=== PATIENT | male | born 1955 | race Two or more races ===

== ENCOUNTER 2025-06-25 12:42 | Inpatient (IN) | payer BC, MEDICAID ==
[~2025-06-25] VITALS: Ht 180.3 cm; Wt 86.3 kg
[~2025-06-25 12:42] MED LIST: ASPI81CH43 PO; FINA5TAB4 PO; TERA1CAP52 PO; TRIA75TA11 PO
--- NOTE | 2025-06-25 12:59 | ED.PDOC ---
History of Present Illness HPI Comments 70-year-old male who is Maori-speaking presents to the ER with spouse and prior medical history of enlarged heart, hypertension, prostate she and the chief complaint of dizziness. Patient reports on waking up this morning with a for episodes of dizziness, like I am going to fall. Spouse states the patient has been generally weak recently and had shortness a breath last night. Denies any other symptoms at this time. Denies chills, fever, N/V/D, CP. No other associated symptoms, modifiers, recent injuries or sick contacts present at this time. Chief Complaint: Dizziness Time Seen by MD: 13:00 Reviewed Notes: Nurses Notes, Medications, Allergies Allergies: Coded Allergies: NO KNOWN ALLERGIES (Unverified , 07/02/13) Home Meds Reported Medications Finasteride (Finasteride) 5 Mg Tab, 5 MG PO HS, TAB 07/03/13 Aspirin (Asa) 81 Mg Ch, 81 MG PO QAM 07/03/13 Hydrochlorothiazide W/Triamter (Hctz/Triamterene) 1 Tab Tab, 12.5 MG PO QAM, TAB 07/03/13 Terazosin Hcl (Terazosin Hcl) 1 Mg Cap, 10 MG PO HS, CAP 07/02/13 Information Source: Patient, Spouse Mode of Arrival: Ambulatory Severity: Moderate Timing: Hours Duration: Since onset, Hours Prehospital treatment: None Past Medical History PAST MEDICAL HISTORY: HTN Past Medical History (Other): Purged heart, prostate issue Surgical History: Denies all surgeries Family History Family History: Reviewed,noncontributory to illness, Unknown Social History Smoker: Quit Greater Than 1 Year Alcohol: Denies ETOH Use Drugs: Denies Drug Use Lives In: Home Constitutional: reports: weakness; denies: chills, diaphoresis, fatigue, fever, malaise, sweats, others EENTM: denies: blurred vision, double vision, ear bleeding, ear discharge, ear drainage, ear pain, ear ringing, eye pain, eye redness, hearing loss, mouth pain, mouth swelling, nasal discharge, nose bleeding, nose congestion, nose pain, photophobia, tearing, throat pain, throat swelling, voice changes, others Respiratory: reports: shortness of breath; denies: cough, hemoptysis, orthopnea, SOB at rest, SOB with excertion, stridor, wheezing, others Cardiovascular: denies: chest pain, dizzy spells, diaphoresis, Dyspnea on exertion, edema, irregular heart beat, left arm pain, lightheadedness, palpitations, PND, syncope, others Gastrointestinal: denies: abdomen distended, abdominal pain, blood streaked bowels, constipated, diarrhea, dysphagia, difficulty swallowing, hematemesis, melena, nausea, poor appetite, poor fluid intake, rectal bleeding, rectal pain, vomiting, others Genitourinary: denies: burning, dysuria, flank pain, frequency, hematuria, incontinence, penile discharge, penile sore, pain, testicle pain, testicle swelling, urgency, others Neurological: reports: dizziness; denies: fainting, headache, left sided numbness, left sided weakness, numbness, paresthesia, pre-existing deficit, right sided numbness, right sided weakness, seizure, speech problems, tingling, tremors, weakness, others Musculoskeletal: denies: back pain, gout, joint pain, joint swelling, muscle pain, muscle stiffness, neck pain, others Integumetry: denies: bruises, change in color, change in hair/nails, dryness, laceration, lesions, lumps, rash, wounds, others Allergic/Immunocompromised: denies: Difficulty Healing, Frequent Infections, Hives, Itching, others Hematologic/Lymphatic: denies: anemia, blood clots, easy bleeding, easy bruising, swollen glands, others Endocrine: denies: excessive hunger, excessive sweating, excessive thirst, excessive urination, flushing, intolerance to cold, intolerance to heat, unexplained weight gain, unexplained weight loss, others Psychiatric: denies: anxiety, bipolar disorder, depression, hopeless, panic disorder, schizophrenia, sleepless, suicidal, others All Other Systems: Reviewed and Negative Physical Exam General Appearance: No Apparent Distress, Normal HEENT: Normal ENT Inspection, Pharynx Normal, TMs Normal Neck: Full Range of Motion, Non-Tender, Normal, Normal Inspection Respiratory: Chest Non-Tender, Lungs Clear, No Accessory Muscle Use, No Respiratory Distress, Normal Breath Sounds Cardiovascular: No Edema, No JVD, No Murmur, No Gallop, Normal Peripheral Pulses, Regular Rate/Rhythm Breast Exam: Deferred Gastrointestinal: No Organomegaly, Non Tender, No Pulsatile Mass, Normal Bowel Sounds, Soft Genitalia: Deferred Pelvic: Deferred Rectal: Deferred Extremities: No calf tenderness, Normal capillary refill, Normal inspection, N ormal range of motion, Non-tender, No pedal edema Musculoskeletal : Apperance: Normal Neurologic: Alert, messenger floorperson II-XII nml as Tested, No Motor Deficits, Normal Affect, Normal Mood, No Sensory Deficits Cerebellar Function: Normal Reflexes: Normal Skin: Dry, Normal Color, Warm Lymphatic: No Adenopathy Was a procedure done? Was a procedure done?: No EKG EKG : Pulse Rate (adult): 65 [place]: Normal Cardiac Rhythm: NSR Block: None Hypertrophy: None ST: Normal Differential Dx Considerations may include: ACS, CVA, viral syndrome, electrolyte abnormality, infectious etiology X-Ray, Labs, Meds, VS Vital Signs Date Time Temp Pulse Resp B/P (MAP) Pulse Ox O2 Delivery O2 Flow Rate FiO2 06/25/25 12:59 65 06/25/25 12:48 65 06/25/25 12:44 97.0 74 15 158/78 98 97.0 Lab Test 06/25/25 14:03 06/25/25 13:07 Range/Units Troponin I High Sensitivity 4 5 </=54 ng/L White Blood Count 5.8 4.4-10.8 10^3/uL Red Blood Count 4.37 L 4.5-5.90 10^6/uL Hemoglobin 12.8 L 13.5-17.5 g/dL Hematocrit 37.7 L 41.0-53.0 % Mean Corpuscular Volume 86.2 80.0-100.0 fL Mean Corpuscular Hemoglobin 29.2 28.0-32.0 pg Mean Corpuscular Hemoglobin Concent 33.8 32.0-36.0 g/dL Red Cell Distribution Width 16.4 H 11.8-14.3 % Platelet Count 248 140-450 10^3/uL Mean Platelet Volume 7.9 6.9-10.8 fL Neutrophils (%) (Auto) 60.4 37.0-80.0 % Lymphocytes (%) (Auto) 27.8 10.0-50.0 % Monocytes (%) (Auto) 6.2 0.0-12.0 % Eosinophils (%) (Auto) 3.9 0.0-7.0 % Basophils (%) (Auto) 1.7 0.0-2.0 % Neutrophils # (Auto) 3.5 1.6-8.6 10 ^3/uL Lymphocytes # (Auto) 1.6 0.4-5.4 10 ^3/uL Monocytes # (Auto) 0.4 0-1.3 10 ^3/uL Eosinophils # (Auto) 0.2 0-0.8 10 ^3/uL Basophils # (Auto) 0.1 0-0.2 10 ^3/uL Nucleated Red Blood Cells 0.1 % Sodium Level 143 136-145 mmol/L Potassium Level 3.9 3.5-5.1 mmol/L Chloride Level 106 98-107 mmol/L Carbon Dioxide Level 29 20-31 mmol/L Anion Gap 8 5-15 Blood Urea Nitrogen 13 9-23 mg/dL Creatinine 0.91 0.700-1.30 mg/dL Glomerular Filtration Rate Calc 90 >90 mL/min BUN/Creatinine Ratio 14.3 10.0-20.0 Serum Glucose 103 74-106 mg/dL Calcium Level 9.2 8.7-10.4 mg/dL B-Type Natriuretic Peptide 46.56 0-100 pg/mL Time of 1ST Reevaluation: 13:30 Reevaluation 1ST: Unchanged Patient Education/Counseling: Diagnosis, Treatment, Prognosis Family Education/Counseling: Diagnosis, Treatment, Prognosis SEPSIS Sepsis Screen Date sepsis recognized/suspect: Jun 25, 2025 Time Sepsis recognized/suspect: 1246 Recent Procedure: No On Antibiotic Therapy: No Respiratory Rate >20: No Heart Rate >90: No Temp<36 C (96.8 F) or >38.3 C: No SBP <90 or MAP <65 mmHG: No New Acute Mental Status Change: No Is the patient on CPAP, BIPAP,: No Physician Orders Urinalysis (06/25/25 12:56) Chest Portable (06/25/25 12:56) Head Without Contrast (06/25/25 12:56) Electrocardigram (06/25/25 12:56) Troponin-I Hs (06/25/25 15:56) Electrocardigram (06/25/25 13:56) Electrocardigram (06/25/25 15:56) Vital Signs Date Time Temp Pulse Resp B/P (MAP) Pulse Ox O2 Delivery O2 Flow Rate FiO2 06/25/25 12:59 65 06/25/25 12:48 65 06/25/25 12:44 97.0 74 15 158/78 98 97.0 Laboratory Tests Test 06/25/25 13:07 White Blood Count 5.8 10^3/uL (4.4-10.8) Departure 1 Departure Time of Disposition: 15:58 (Patient presented with near syncope today and should be admitted. Data: 1. I ordered and reviewed the result of at least 3 labs including a CBC, BMP, and troponin. 2. I independently interpreted the following tests: EKG which shows a sinus arrhythmia and a chest x-ray which shows benign chest and a CT head which shows benign brain.Risk:This patient has a high risk of morbidity due to further diagnostic testing or treatment and may suffer from an acute cardiac, neurologic, or infectious disorder. Rationale: Patient should be admitted to the hospital for further management.) Impression: Primary Impression: Near syncope Additional Impression: Generalized weakness Disposition: 09 ADMITTED INPATIENT Admit to: Tele Condition: Guarded Critical Care Note Critical Care Time?: No Stability Stability form required: No I personally scribed for JOEL ALLEN MD ([email or web address]) on 06/25/25 at 12:59. Electronically submitted by Isaac Wild ([email or web address]). JOEL ALLEN MD Jun 25, 2025 12:59
[2025-06-25 13:21] LABS: Hematocrit 37.7 % (41.0-53.0); Hemoglobin 12.8 g/dL (13.5-17.5); Mean Corpuscular Hemoglobin 29.2 pg (28.0-32.0); Mean Corpuscular Volume 86.2 fL (80.0-100.0); Nucleated Red Blood Cells % 0.1 %
[2025-06-25 13:25] LABS: Chloride 106 mmol/L (98-107); Potassium 3.9 mmol/L (3.5-5.1); Sodium 143 mmol/L (136-145)
[2025-06-25 13:26] LABS: Anion Gap 8 (5-15); Carbon Dioxide 29 mmol/L (20-31)
[2025-06-25 13:27] LABS: Calcium 9.2 mg/dL (8.7-10.4)
[2025-06-25 13:31] LABS: BUN/Creatinine Ratio 14.3 (10.0-20.0); Blood Urea Nitrogen 13 mg/dL (9-23); Glucose 103 mg/dL (74-106)
--- NOTE | 2025-06-25 13:41 | DVH ---
CHEST RADIOGRAPH INDICATION: near syncope TECHNIQUE: Single frontal view of the chest was obtained COMPARISON: None FINDINGS: Lines and Tubes: None Lungs: No focal consolidation. Pleura: No effusion. No pneumothorax. Cardiomediastinal contours: Unremarkable Bones: No acute osseous abnormality. IMPRESSION: 1. No acute cardiopulmonary disease.
--- NOTE | 2025-06-25 14:13 | DVH ---
CLINICAL INFORMATION: Near syncope. Headache. TECHNIQUE: Axial imaging was obtained through the brain without contrast. Coronal and sagittal reformatted images were obtained, reviewed, and stored. Images were reviewed in brain and bone windows. All CT scans at this medical facility are performed using dose modulation techniques as appropriate to a performed exam including the following: Automated exposure control was utilized; adjustment of the MA and/or KV according to patient size; and use of iterative reconstruction technique. CTDIvol = 67 mGy DLP = 1586.3 mGy-cm COMPARISON: None FINDINGS: There is no acute intracranial hemorrhage. No mass effect or midline shift. The ventricles and sulci are within normal limits in size for age. Basal cisterns are patent. The calvarium is unremarkable. Minimal mucosal thickening of the paranasal sinuses. Mastoid air cells are clear. IMPRESSION: No CT evidence of acute intracranial abnormality.
[2025-06-25] MEDS ORDERED: DEXTROSE (50%) 50ML SYRG IV PRN (16:45)
--- NOTE | 2025-06-25 16:48 | ECG ---
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
--- NOTE | 2025-06-25 17:00 | DVHHPRES ---
History of Present Illness Resident Creating Document: LOREN GRIJALVA RESIDENT History of Present Illness 70-year-old male with past medical history of hypertension, diabetes mellitus type 2, prostatomegaly, kidney cyst, right inguinal hernia, cardiomegaly presented with the complaints of presyncope. Patient mentioned that he had two episodes of presyncope in the 1st time and he was taking the garbage on 2nd time during driving. He described the presyncope as "I felt like I was about to fall". Patient did not have any head injury. He denied any active chest pain, palpitations but mentioned that he gets tired after walking with minimal activity. He Also mentioned complaints of pedal edema . He denied any complaints of seizure, chills, abdominal pain, nausea, vomiting, headache. Past medical history Hypertension Diabetes mellitus type 2 prostatomegaly, kidney cyst, right inguinal hernia, cardiomegaly Past surgical history No recent surgery Medication history Tamsulosin Amlodipine Valsartan hydrochlorothiazide Amlodipine olmesartan Atorvastatin Doxazosin Social history Patient quit years ago, smoked for15 years Denied alcohol, marijuana or any other drug intake Allergic history No known allergies Review of Systems Review of Systems As described in the HPI Allergies: Coded Allergies: NO KNOWN ALLERGIES (Unverified , 07/02/13) Medications Current Medications Medications Dose Ordered Sig/Isael Route Start Time Stop Time Status Last Admin Dose Admin Diagnostic Test (Pha) 1 strip Q6HR 06/25/25 18:00 UNV Insulin Human Regular Q6HR SC 06/25/25 18:00 UNV Dextrose 50 ml UD PRN IV 06/25/25 16:45 UNV Aspirin 81 mg DAILY PO 06/26/25 10:00 UNV Exam Vital Signs Vital Signs Date Time Temp Pulse Resp B/P (MAP) Pulse Ox O2 Delivery O2 Flow Rate FiO2 06/25/25 12:59 65 06/25/25 12:44 97.0 15 158/78 98 97.0 Exam Examination General Appearance: Alert, Oriented X3, Cooperative, No acute distress HEENT: EOMI Respiratory: Clear to auscultation, Normal air movement Cardiovascular: Regular rate, Normal S1, Normal S2 Abdominal: Normal bowel sounds Extremities: Bilateral pedal pitting edema Skin: No rashes, No breakdown Neuro: Normal speech and tone Labs/Xrays Labs Test 06/25/25 14:03 06/25/25 13:07 Range/Units Troponin I High Sensitivity 4 </=54 ng/L White Blood Count 5.8 4.4-10.8 10^3/uL Red Blood Count 4.37 L 4.5-5.90 10^6/uL Hemoglobin 12.8 L 13.5-17.5 g/dL Hematocrit 37.7 L 41.0-53.0 % Mean Corpuscular Volume 86.2 80.0-100.0 fL Mean Corpuscular Hemoglobin 29.2 28.0-32.0 pg Mean Corpuscular Hemoglobin Concent 33.8 32.0-36.0 g/dL Red Cell Distribution Width 16.4 H 11.8-14.3 % Platelet Count 248 140-450 10^3/uL Mean Platelet Volume 7.9 6.9-10.8 fL Neutrophils (%) (Auto) 60.4 37.0-80.0 % Lymphocytes (%) (Auto) 27.8 10.0-50.0 % Monocytes (%) (Auto) 6.2 0.0-12.0 % Eosinophils (%) (Auto) 3.9 0.0-7.0 % Basophils (%) (Auto) 1.7 0.0-2.0 % Neutrophils # (Auto) 3.5 1.6-8.6 10 ^3/uL Lymphocytes # (Auto) 1.6 0.4-5.4 10 ^3/uL Monocytes # (Auto) 0.4 0-1.3 10 ^3/uL Eosinophils # (Auto) 0.2 0-0.8 10 ^3/uL Basophils # (Auto) 0.1 0-0.2 10 ^3/uL Nucleated Red Blood Cells 0.1 % Sodium Level 143 136-145 mmol/L Potassium Level 3.9 3.5-5.1 mmol/L Chloride Level 106 98-107 mmol/L Carbon Dioxide Level 29 20-31 mmol/L Anion Gap 8 5-15 Blood Urea Nitrogen 13 9-23 mg/dL Creatinine 0.91 0.700-1.30 mg/dL Glomerular Filtration Rate Calc 90 >90 mL/min BUN/Creatinine Ratio 14.3 10.0-20.0 Serum Glucose 103 74-106 mg/dL Calcium Level 9.2 8.7-10.4 mg/dL B-Type Natriuretic Peptide 46.56 0-100 pg/mL SEPSIS Sepsis Screen Date sepsis recognized/suspect: Jun 25, 2025 Time Sepsis recognized/suspect: 1246 Recent Procedure: No On Antibiotic Therapy: No Respiratory Rate >20: No Heart Rate >90: No Temp<36 C (96.8 F) or >38.3 C: No SBP <90 or MAP <65 mmHG: No New Acute Mental Status Change: No Is the patient on CPAP, BIPAP,: No Physician Orders Urinalysis (06/25/25 12:56) Chest Portable (06/25/25 12:56) Head Without Contrast (06/25/25 12:56) Electrocardigram (06/25/25 12:56) Electrocardigram (06/25/25 13:56) Electrocardigram (06/25/25 15:56) Admit (06/25/25 16:31) Code Status (06/25/25 16:31) Complete Blood Count (06/26/25 04:00) Comprehensive Metabolic Panel (06/26/25 04:00) Echo 2d Mode Cardiac Dop (06/25/25 16:31) Oxygen By Nasal Cannula (06/25/25 16:31) Stat Ekg For Chest Pain (06/25/25 16:31) Notify Md Of Changes From Base (06/25/25 16:31) Boiler Repair Supervisor For 24 Hours (06/25/25 16:31) Emergency Dysrhythmia Protocol (06/25/25 16:31) Rhythm Strips Once Every Shift (06/25/25 16:31) Head Without Contrast (06/25/25 16:31) Troponin-I Hs (06/25/25 16:31) B-Type Natriuretic Peptide (06/25/25 16:31) Thyroid Stimulating Hormone (06/25/25 16:31) Troponin-I Hs (06/25/25 17:31) Troponin-I Hs (06/25/25 19:31) Chest Xray 1 View (06/25/25 16:31) Urinalysis (06/25/25 16:31) Drug Screen (06/25/25 16:31) Hepatic Panel (06/25/25 16:31) Cardiac Diet-2gna,Lofat,Lochol (06/25/25 Dinner) Glucose Blood (Accu-Chek Comfort Curve T (06/25/25 18:00) Insulin R (Human) (Insulin R) (06/25/25 18:00) Dextrose 50% Syringe (06/25/25 16:45) Aspirin Chewable Tablet (06/25/25 16:45) Aspirin Chewable Tablet (06/26/25 10:00) Vital Signs Date Time Temp Pulse Resp B/P (MAP) Pulse Ox O2 Delivery O2 Flow Rate FiO2 06/25/25 12:59 65 06/25/25 12:48 65 06/25/25 12:44 97.0 74 15 158/78 98 97.0 Laboratory Tests Test 06/25/25 13:07 White Blood Count 5.8 10^3/uL (4.4-10.8) Assessment/Plan Assessment/Plan Assessment/plan # presyncope polypharmacy/cardiac cause Head CT Echo EKG Tropes, BNP Orthostatic vitals TSH, B12, folate # Hypertension -resume home meds # bilateral pedal pitting edema ? Amlodipine use/congestive heart failure/other causes -echo ordered BNP # BPH Hold doxazosin as of now because of presyncope # diabetes mellitus two Sliding scale insulin Hemoglobin A1c DVT prophylaxis Patient is ambulatory Code status discussed with the patient for greater than 21 minutes, full code Case discussion with Dr. Duarte Plan discussed with: Patient My Orders Orders - LOREN GRIJALVA RESIDENT Procedure Category Date Status Time Admit ADMIT 06/25/25 Transmitted 16:31 Code Status CODE 06/25/25 Transmitted 16:31 Complete Blood Count LAB 06/26/25 Verified 04:00 Comprehensive LAB 06/26/25 Verified Metabolic Panel 04:00 Echo 2d Mode Cardiac US 06/25/25 Logged DOP 16:31 Oxygen By Nasal RT 06/25/25 Transmitted Cannula 16:31 Stat Ekg For Chest KENDALL 06/25/25 In Process Pain 16:31 Notify Of Changes KENDALL 06/25/25 In Process From Base 16:31 Boiler Repair Supervisor For KENDALL 06/25/25 In Process 24 Hours 16:31 Emergency Dysrhythmia KENDALL 06/25/25 In Process Protocol 16:31 Rhythm Strips Once KENDALL 06/25/25 In Process Every Shift 16:[address] 06/25/25 Logged 16:31 Troponin-I Hs LAB 06/25/25 Logged 16:31 B-Type Natriuretic LAB 06/25/25 Logged Peptide 16:31 Thyroid Stimulating LAB 06/25/25 Logged Hormone 16:31 Troponin-I Hs LAB 06/25/25 Logged 17:31 Troponin-I Hs LAB 06/25/25 Logged 19:31 Chest Xray 1 View XY 06/25/25 Logged 16:31 Urinalysis LAB 06/25/25 Logged 16:31 Drug Screen LAB 06/25/25 Logged 16:31 Hepatic Panel LAB 06/25/25 Logged 16:31 Cardiac DIET 06/25/25 Transmitted Diet-2gna,Lofat,Lochol Dinner Glucose Blood PHA 06/25/25 Logged (Accu-Chek Comfort 18:00 Insulin R (Human) PHA 06/25/25 Logged (Insulin R) 18:00 Dextrose 50% Syringe PHA 06/25/25 Logged 16:45 Aspirin Chewable PHA 06/25/25 In Process Tablet 16:45 Aspirin Chewable PHA 06/26/25 Logged Tablet 10:00 Visit Coding STANDARD RES Billing Provider: DACIA DUARTE MD Date of Service if different f: Jun 25, 2025 Common Visit Codes: 73081-IYKVDTS INP/OBS CARE (HIGH) Secondary Visit Codes: [id number] CARE PLAN 30 MINUTES LOREN GRIJALVA RESIDENT Jun 25, 2025 17:00
[2025-06-25 17:04] LABS: Alanine Aminotransferase 22 U/L (7-40); Albumin 4.3 g/dL (3.2-4.8); Alkaline Phosphatase 106 U/L (46-116); Bilirubin, Total 0.4 mg/dL (0.2-1.0); Total Protein 7.3 g/dL (5.7-8.2)
[2025-06-25 17:05] LABS: Bilirubin, Direct < 0.1 mg/dL (<0.3)
[2025-06-25] MEDS: InsuLIN REG 1unit/0.01ml Soln (100units/ml) SC SCH (18:37)
[2025-06-25] MEDS: ACCU-CHEK COMFORT CURVE STRIP VI SCH (18:44)
[2025-06-26] VITALS (9 sets, daily range): BP systolic 151–174; BP diastolic 73–90; PULSE 52–70; RESP 16–19; TEMP 97.7–98; O2SAT 97–99
[2025-06-26 06:44] LABS: Chloride 106 mmol/L (98-107); Potassium 3.6 mmol/L (3.5-5.1); Sodium 143 mmol/L (136-145)
[2025-06-26 06:45] LABS: Anion Gap 7 (5-15); Carbon Dioxide 30 mmol/L (20-31)
[2025-06-26 06:46] LABS: Calcium 9.1 mg/dL (8.7-10.4)
[2025-06-26 06:50] LABS: Alkaline Phosphatase 92 U/L (46-116); Glucose 102 mg/dL (74-106); Hematocrit 38.3 % (41.0-53.0); Hemoglobin 12.9 g/dL (13.5-17.5); Mean Corpuscular Hemoglobin 28.5 pg (28.0-32.0); Mean Corpuscular Volume 84.8 fL (80.0-100.0); Nucleated Red Blood Cells % 0.1 %
[2025-06-26 06:51] LABS: BUN/Creatinine Ratio 17.9 (10.0-20.0); Blood Urea Nitrogen 12 mg/dL (9-23); Total Protein 7.0 g/dL (5.7-8.2)
[2025-06-26 06:52] LABS: Albumin 4.1 g/dL (3.2-4.8)
[2025-06-26 06:53] LABS: Bilirubin, Total 0.5 mg/dL (0.2-1.0)
[2025-06-26] MEDS ORDERED: TRIAMTER PO SCH (07:00)
[2025-06-26] MEDS ORDERED: HYDROCHLOROTHIAZIDE PO SCH (07:00)
[2025-06-26 07:49] LABS: Alanine Aminotransferase 21 U/L (7-40)
[2025-06-26 08:03] LABS: Urine Protein, UAD Negative (Negative)
[2025-06-26 08:10] LABS: Amphetamine Screen, Urine Neg (NEGATIVE); Barbiturate Scree,Urine Neg (NEGATIVE); Benzodiazephine Screen, Urine Neg (NEGATIVE); Cannabinoid Screen, Urine Neg (NEGATIVE); Cocaine Screen, Urine Neg (NEGATIVE); Opiate Scree,Urine Neg (NEGATIVE); Phencyclidine Screen, Urine Neg (NEGATIVE)
[2025-06-26] MEDS ORDERED: ATOR40TA52 PO (08:31)
[2025-06-26] MEDS ORDERED: AML5T PO (08:31)
[2025-06-26] MEDS ORDERED: VALS160T53 PO (08:31)
[2025-06-26] MEDS ORDERED: TAMS0.4C39 PO (08:31)
[2025-06-26] MEDS ORDERED: FERR140T5 PO (08:31)
[2025-06-26] MEDS ORDERED: DOXA4TAB83 PO (08:31)
[2025-06-26] MEDS: FINASTERIDE 5 MG TAB PO SCH (10:40)
[2025-06-26] MEDS: TRIAMTERENE/HCTZ 37.5/25 MG CAP/TAB PO SCH (10:41)
[2025-06-26] MEDS: VALSARTAN 80 MG TAB PO SCH (10:41)
--- NOTE | 2025-06-26 11:57 | DVHPNRES ---
Progress Note Date Seen: Jun 26, 2025 Resident Creating Document: PATRICK JACOBS RESIDENT Medical Necessity Reason Pt with a Central, PICC or Fol: No Subjective Review of Systems Juan Whitman is a 70-year-old past medical history of hypertension, dsu-qloiwun-vnmunnuen diabetes mellitus, prostatomegaly who presented to the ED with a chief complaint of an episode of dizziness yesterday. He mentioned he was taking out the garbage yesterday by bending down, and felt dizzy when he stood back up. He did not lose consciousness or fall. He mentions having a similar episode of dizziness 3 times in the last 1 year. He also complains of leg swelling since the last few weeks. The patient mentions he checked his blood glucose levels after the episode, which was 85. He mentions that his PCP told him in March that he has an enlarged heart. Patient has been taking his regular medications since April after he quit his job and moved to this area. Past medical history: hypertension, nnb-sewcvow-rvygnzesk diabetes mellitus, prostatomegaly Past surgical history: Denies Home medications: Tamsulosin, amlodipine, valsartan hydrochlorothiazide, atorvastatin, doxazosin Social & Personal history: Quit smoking 25 years back, smoke 20 cigarettes per week for 10 years, quit alcohol 25 years back, denies any drug use Allergies: No known allergies Patient seen and examined at bedside. Patient is alert and oriented to time, place person and responding to all questions. Eyes: No Pain, No Vision change, No Conjunctivae inflammation, No Eyelid inflammation, No Redness ENT: No Ear pain, No Ear discharge, No Nose pain, No Nose discharge, No Nose congestion, No Mouth pain, No Mouth swelling, No Throat pain, No Throat swelling Cardiovascular: No Chest Pain, No Palpitations, No Orthopnea, No Paroxysmal No Dyspnea, No Edema, No Lt Headedness Respiratory: No Cough, No Dry, No Shortness of breath, No SOB with exertion, No Wheezing, No Hemoptysis, No Pleuritic Pain, No Sputum Gastrointestinal: No Nausea, No Vomiting, No Abdominal Pain, No Diarrhea, No Constipation, No Melena, No Hematochezia Genitourinary: No Dysuria, No Frequency, No Incontinence, No Hematuria, No Retention Objective vital signs Vital Sign Date Time Temp Pulse Resp B/P (MAP) Pulse Ox O2 Delivery O2 Flow Rate FiO2 06/26/25 10:41 174/83 06/26/25 09:21 67 18 99 06/26/25 08:00 Room Air* 0 21 06/26/25 03:54 97.8 97.8 Total Intake and Output 06/25/25 06/25/25 06/26/25 15:00 23:00 07:00 Intake Total 50 ml Balance 50 ml medications Current Medications Medications Dose Ordered Sig/Isael Route Start Time Stop Time Status Last Admin Dose Admin Aspirin 81 mg DAILY PO 06/26/25 10:00 06/26/25 09:36 81 MG Triamterene/HCTZ 1 cap DAILY PO 06/26/25 10:00 06/26/25 10:41 1 CAP Tamsulosin HCl 0.4 mg QPM PO 06/26/25 18:00 Finasteride 5 mg DAILY PO 06/26/25 10:00 06/26/25 10:40 5 MG Valsartan 160 mg DAILY PO 06/26/25 10:00 06/26/25 10:41 160 MG Examination General Appearance: Cooperative. Well developed. Well nourished. NAD Head Exam: Normal inspection Neck Exam: Normal inspection. Non-tender. Normal alignment Pulmonary/Respiratory: Chest non-tender. Clear bilateral breath sounds, no crackles, no wheezing. Cardiovascular/Chest: Regular rate and rhythm. No murmurs. JVD present Peripheral Pulses: 2+ Radial (R). 2+ Radial (L). 2+ Pedal (R). 2+ Pedal (L) Abdominal Exam: Normal bowel sounds. Soft. normal abdomen, no visible veins, Nontender. No hepatospenomegaly. No masses Lower extremities: 2+ pitting edema in bilateral lower extremities Neuro/Mental Status: A&O x4. Coherent. Thoughts/Psych: Normal thought pattern. Appropriate mood and affect. Good judgement and insight Skin Exam: Normal inspection. Normal color. Warm. Dry laboratory and microbiology Laboratory Tests 06/26/25 06:07 Test 06/26/25 06:07 Range/Units Serum Glucose 102 74-106 mg/dL Labs and/or images reviewed: Labs reviewed by me, Image(s) reviewed by me Problem List/Assessment/Plan Problem List/Assessment/Plan # Possible congestive heart failure, systolic/diastolic # Presyncope, polypharmacy/cardiac cause -Head CT -acute intracranial abnormality -chest x-ray-no acute changes -EKG shows LVH -Echo ordered -Tropes negative x2, BNP 46 -Orthostatic vitals ordered -furosemide 40mg daily iv -on telemetry # Hypertensive urgency # Hypertensive heart disease with possible systolic/diastolic heart failure -dyazide 1 cap daily po and valsartan 160mg daily po # BPH -tamsulosin 0.4 mg HS, finasteride mg daily p.o. # Chronic diabetes mellitus two, controlled -Sliding scale insulin -Hemoglobin A1c Code status discussed with the patient for greater than 21 minutes, full code Plan dscussed with Dr. Whitney Plan discussed with: Patient Visit Coding STANDARD RES Billing Provider: DACIA WHITNEY MD Date of Service if different f: Jun 26, 2025 Common Visit Codes: [id number] INP/OBS CARE(HIGH) PATRICK JACOBS RESIDENT Jun 26, 2025 11:57
[2025-06-26] MEDS: SPIRONOLACTONE 25 MG TAB PO ONE (16:20)
[2025-06-26] MEDS: FUROSEMIDE 40 MG/4 ML VIAL IV SCH (17:25)
[2025-06-26] MEDS: TAMSULOSIN HYDROCHLORIDE 0.4 MG CAP PO SCH (17:46)
[2025-06-26] MEDS ORDERED: FUROSEMIDE 40 MG/4 ML VIAL IV ONE (18:00)
[2025-06-26] MEDS: ATORVASTATIN 20 MG TAB PO SCH (22:16)
[2025-06-27 01:00] VITALS: BP 182/101; PULSE 79; RESP 18; TEMP 97.9; O2SAT 95
[2025-06-27] MEDS: hydrALAZINE HCL 20 MG/ML VL IV ONE (01:02)
[2025-06-27 05:00] VITALS: BP 171/88; PULSE 60; RESP 18; TEMP 97.7; O2SAT 97
[2025-06-27 08:00] VITALS: PULSE 55
[2025-06-27] MEDS: SPIRONOLACTONE 25 MG TAB PO SCH (08:39)
[2025-06-27 09:00] VITALS: BP 171/85; PULSE 60; RESP 20; TEMP 98.7; O2SAT 95
[2025-06-27] MEDS: EMPAGLIFLOZIN 10 MG TAB PO SCH (09:59)
[2025-06-27 10:36] LABS: Chloride 102 mmol/L (98-107); Sodium 143 mmol/L (136-145)
[2025-06-27 10:37] LABS: Calcium 9.5 mg/dL (8.7-10.4)
[2025-06-27 10:39] LABS: Anion Gap 9 (5-15); Carbon Dioxide 32 mmol/L (20-31); Potassium 3.5 mmol/L (3.5-5.1)
[2025-06-27 10:42] LABS: BUN/Creatinine Ratio 11.4 (10.0-20.0); Blood Urea Nitrogen 9 mg/dL (9-23); Glucose 100 mg/dL (74-106)
[2025-06-27 10:43] LABS: Magnesium 2.2 mg/dL (1.6-2.6)
[2025-06-27 13:00] VITALS: BP 162/94; PULSE 61; RESP 20; TEMP 98.7; O2SAT 95
--- NOTE | 2025-06-27 13:52 | DVHPNRES ---
Progress Note Date Seen: Jun 27, 2025 Resident Creating Document: ADE BOURGEOISMARY RESIDENT Medical Necessity Reason Pt with a Central, PICC or Fol: No Subjective Review of Systems Patient seen and examined with the bedside Reports shortness of breath has improved significantly Denies any chest pain, cough, phlegm, dizziness, headache Objective vital signs Vital Sign Date Time Temp Pulse Resp B/P (MAP) Pulse Ox O2 Delivery O2 Flow Rate FiO2 06/27/25 09:00 98.7 60 20 171/85 (113) 95 98.7 06/27/25 08:00 Room Air* 0 21 Total Intake and Output 06/26/25 06/26/25 06/27/25 15:00 23:00 07:00 Intake Total 400 ml Output Total 400 ml Balance 0 ml medications Current Medications Medications Dose Ordered Sig/Isael Route Start Time Stop Time Status Last Admin Dose Admin Aspirin 81 mg DAILY PO 06/26/25 10:00 06/27/25 08:39 81 MG Tamsulosin HCl 0.4 mg QPM PO 06/26/25 18:00 06/26/25 17:46 0.4 MG Finasteride 5 mg DAILY PO 06/26/25 10:00 06/27/25 08:39 5 MG Valsartan 160 mg DAILY PO 06/26/25 10:00 06/27/25 08:40 160 MG Furosemide 40 mg BIDD IV 06/26/25 18:00 06/27/25 05:37 40 MG Spironolactone 25 mg DAILY PO 06/27/25 10:00 06/27/25 08:39 25 MG Atorvastatin Calcium 20 mg HS PO 06/26/25 22:00 06/26/25 22:16 20 MG Empaglifozin 10 mg DAILY PO 06/27/25 10:00 06/27/25 09:59 10 MG Examination Skin - Patients skin is warm and dry. HEENT - normocephalic, atraumatic, moist mucous membranes, no conjunctival pallor, no scleral icterus Neck - full ROM, no LAD, jugular venous pulsation seen elevated Pulmonary - B/L clear breath sounds with a improved crackles since yesterday cardiovascular - regular S1,S2 heard, no added sounds, no murmurs,. peripheral pulses normal radial 2+, pedal 2+. capillary refill normal <2 secs. GI - soft, nontender abdomen. no hepatospleenomegaly. Bowel sounds normoactive Neurological - Patient is A/O X 4 . Bilateral upper extremity strength 5/5, bilateral lower extremity strength 5/5, no facial droop, normal speech, no tremor, no sensory deficiets. laboratory and microbiology Laboratory Tests 06/27/25 09:59 06/26/25 06:07 Test 06/27/25 09:59 Range/Units Serum Glucose 100 74-106 mg/dL Problem List/Assessment/Plan Problem List/Assessment/Plan Possible congestive heart failure, systolic/diastolic Hypertensive heart disease with likely heart failure Possible pulmonary hypertension Presyncope likely due to CHF H/o BPH Type 2 diabetes mellitus - Head CT showed no acute intracranial abnormality - chest x-ray showed pulmonary venous congestion - echocardiogram pending - diuresis with Lasix 40 mg b.i.d. - on valsartan 160 mg, spironolactone 25 mg, Jardiance 10 mg - tamsulosin 0.4 mg HS, finasteride mg daily p.o. Code status discussed with the patient for greater than 19 minutes. full code Time spent: 33 minutes Plan discussed with Dr. Duarte Plan discussed with: Patient, Other (RN Shira) My Orders My Orders Orders - MAYCO BOURGEOIS Procedure Category Date Status Time Furosemide Injection PHA 06/26/25 In Process (Lasix Injection) 18:00 Spironolactone PHA 06/27/25 In Process (Aldactone) 10:00 Atorvastatin (Lipitor) PHA 06/26/25 In Process 22:00 Empagliflozin PHA 06/27/25 In Process (Jardiance) 10:00 Strict I & O KENDALL 06/27/25 In Process 10:48 Visit Coding STANDARD RES Billing Provider: DACIA DUARTE MD Date of Service if different f: Jun 27, 2025 Common Visit Codes: [id number] INP/OBS CARE(HIGH) Secondary Visit Codes: 67078-[id number] CARE PLAN 30 MINUTES MAYCO BOURGEOIS RESIDENT Jun 27, 2025 13:52
[2025-06-27] MEDS ORDERED: VALS1TAB57 PO (15:14)
[2025-06-27] MEDS ORDERED: SPIR25TA PO (15:14)
[2025-06-27] MEDS ORDERED: FURO40TA4 PO (15:14)
[2025-06-27] MEDS ORDERED: ATOR20TA50 PO (15:14)
[2025-06-27] MEDS ORDERED: EMPA1TAB PO (15:14)
[2025-06-27] MEDS ORDERED: TAMS0.4C39 PO (15:14)
[2025-06-27] MEDS ORDERED: CARV6.2551 PO (15:14)
[2025-06-27] MEDS ORDERED: FINA5TAB4 PO (15:14)
[2025-06-27 21:00] VITALS: BP 173/80; PULSE 62; RESP 17; TEMP 98.1; O2SAT 98
--- NOTE | 2025-06-27 21:09 | DVHSR ---
APPROVED REPORT EXAM: Two-dimensional and M-mode echocardiogram with Doppler and color Doppler. Blood Pressure: 171/88 mmHg INDICATION Presyncope RISK FACTORS Height: 70, Weight: 190 DIMENSIONS LVDd 5.9 (3.8-5.7cm) LA (2D) 4.9 (1.9-4.0cm) Aortic Root 3.9 (2.0-3.7cm) LVDs 3.8 (2.5-4.0cm) LA (MM) (1.9-4.0cm) Aortic Cusp Exc 2.1 (1.5-2.0cm) EF (%) 65.0 (55-70%) Rt. Atrium 5.1 (1.9-4.0cm) Asc. Aorta cm Mitral Valve Mitral Mitral Stenosis E wave 0.54m/s MV Mean GR. mmHg A wave 0.96m/s MV Peak GR. 74mmHg E/A ratio 0.6 2D MVA cm2 DECEL Time 264ms PRESS 1/2 Time 75ms IVRT ms Dop MVA 2.93cm2 Aortic Valve Aortic Valve Aortic Stenosis V1 1.01m/s AO Mean GR. 5mmHg V2 1.66m/s AO Peak GR. 11mmHg LVOT Diameter 2.6 (1.8-2.4cm) Doppler NAVIN 3.23cm2 Pulmonic Valve V2 1.64m/s Tricuspid Valve TR Velocity 2.37m/s RVSP 22mmHg Conclusion MODERATELY DILATED RV AND RA LV EF IS 65% AND IS NORMAL NORMAL VALVES NO EFFUSION
[2025-06-27] MEDS: CARVEDILOL 3.125 MG TAB PO SCH (21:10)
[2025-06-28] VITALS (7 sets, daily range): BP systolic 149–194; BP diastolic 78–95; PULSE 57–80; RESP 15–19; TEMP 97.5–98.7; O2SAT 94–98
[2025-06-28 06:11] LABS: Chloride 104 mmol/L (98-107); Potassium 3.8 mmol/L (3.5-5.1); Sodium 142 mmol/L (136-145)
[2025-06-28 06:12] LABS: Anion Gap 7 (5-15)
[2025-06-28 06:13] LABS: Calcium 9.1 mg/dL (8.7-10.4)
[2025-06-28 06:18] LABS: BUN/Creatinine Ratio 21.7 (10.0-20.0); Blood Urea Nitrogen 18 mg/dL (9-23); Carbon Dioxide 31 mmol/L (20-31); Glucose 103 mg/dL (74-106); Magnesium 2.4 mg/dL (1.6-2.6)
[2025-06-28] MEDS: FUROSEMIDE 40 MG/4 ML VIAL IV SCH (08:52)
[2025-06-28] MEDS: hydrALAZINE HCL 20 MG/ML VL IV ONE (12:44)
[2025-06-28] MEDS: CARVEDILOL 3.125 MG TAB PO ONE (12:45)
--- NOTE | 2025-06-28 14:30 | DVHPNRES ---
Progress Note Date Seen: Jun 28, 2025 Resident Creating Document: ISIAH SCHMIDT RESIDENT Medical Necessity Reason Pt with a Central, PICC or Fol: No Subjective Review of Systems Juan Whitman is a 70-year-old past medical history of hypertension, [id number] diabetes mellitus, prostatomegaly who presented to the ED with a chief complaint of an episode of dizziness yesterday. He mentioned he was taking out the garbage yesterday by bending down, and felt dizzy when he stood back up. He did not lose consciousness or fall. He mentions having a similar episode of dizziness 3 times in the last 1 year. He also complains of leg swelling since the last few weeks. The patient mentions he checked his blood glucose levels after the episode, which was 85. He mentions that his PCP told him in March that he has an enlarged heart. Patient has been taking his regular medications since April after he quit his job and moved to this area. Past medical history: hypertension, uro-ikfcrbj-qiqkomhou diabetes mellitus, prostatomegaly Past surgical history: Denies Home medications: Tamsulosin, amlodipine, valsartan hydrochlorothiazide, atorvastatin, doxazosin Social & Personal history: Quit smoking 25 years back, smoke 20 cigarettes per week for 10 years, quit alcohol 25 years back, denies any drug use Allergies: No known allergies Patient seen and examined at bedside. Patient is alert and oriented to time, place person and responding to all questions. 06/28/2025: Patient seen at bedside. Patient today has no new acute complaints. Blood pressure was elevated. Added nifedipine 20 mg p.o. daily. Objective vital signs Vital Sign Date Time Temp Pulse Resp B/P (MAP) Pulse Ox O2 Delivery O2 Flow Rate FiO2 06/28/25 12:45 76 194/95 06/28/25 09:00 97.9 19 98 97.9 06/27/25 20:00 Room Air* 0 21 Total Intake and Output 06/27/25 06/27/25 06/28/25 15:00 23:00 07:00 Intake Total 1000 ml 360 ml Output Total 1200 ml 830 ml Balance -200 ml -470 ml medications Current Medications Medications Dose Ordered Sig/Isael Route Start Time Stop Time Status Last Admin Dose Admin Aspirin 81 mg DAILY PO 06/26/25 10:00 06/28/25 08:56 81 MG Tamsulosin HCl 0.4 mg QPM PO 06/26/25 18:00 06/27/25 17:08 0.4 MG Finasteride 5 mg DAILY PO 06/26/25 10:00 06/28/25 08:55 5 MG Valsartan 160 mg DAILY PO 06/26/25 10:00 06/28/25 09:04 160 MG Spironolactone 25 mg DAILY PO 06/27/25 10:00 06/28/25 08:57 25 MG Atorvastatin Calcium 20 mg HS PO 06/26/25 22:00 06/27/25 21:10 20 MG Empaglifozin 10 mg DAILY PO 06/27/25 10:00 06/28/25 08:55 10 MG Furosemide 40 mg DAILY IV 06/28/25 10:00 06/28/25 08:52 40 MG Carvedilol 6.25 mg Q12HR PO 06/27/25 22:00 06/28/25 08:54 6.25 MG Nifedipine 60 mg DAILY PO 06/29/25 10:00 Examination General Appearance: Cooperative. Well developed. Well nourished. NAD Head Exam: Normal inspection Neck Exam: Normal inspection. Non-tender. Normal alignment Pulmonary/Respiratory: Chest non-tender. Clear bilateral breath sounds, no crackles, no wheezing. Cardiovascular/Chest: Regular rate and rhythm. No murmurs. JVD present Peripheral Pulses: 2+ Radial (R). 2+ Radial (L). 2+ Pedal (R). 2+ Pedal (L) Abdominal Exam: Normal bowel sounds. Soft. normal abdomen, no visible veins, Nontender. No hepatospenomegaly. No masses Lower extremities: 2+ pitting edema in bilateral lower extremities Neuro/Mental Status: A&O x4. Coherent. Thoughts/Psych: Normal thought pattern. Appropriate mood and affect. Good judgement and insight Skin Exam: Normal inspection. Normal color. Warm. Dry laboratory and microbiology Laboratory Tests 06/28/25 05:22 06/26/25 06:07 Test 06/28/25 05:22 Range/Units Serum Glucose 103 74-106 mg/dL Problem List/Assessment/Plan Problem List/Assessment/Plan Possible congestive heart failure, systolic/diastolic Hypertensive heart disease with likely heart failure Possible pulmonary hypertension Presyncope likely due to CHF H/o BPH Type 2 diabetes mellitus - Head CT showed no acute intracranial abnormality - chest x-ray showed pulmonary venous congestion - echocardiogram pending - diuresis with Lasix 40 mg b.i.d. - on valsartan 160 mg, spironolactone 25 mg, Jardiance 10 mg - tamsulosin 0.4 mg HS, finasteride mg daily p.o. Code status discussed with the patient for greater than 19 minutes. full code Time spent: 33 minutes Plan discussed with Dr. Smith Plan discussed with: Patient My Orders My Orders Orders - ISIAH SCHMIDT RESIDENT Procedure Category Date Status Time Nifedipine Er PHA 06/29/25 In Process (Procardia Xl 10:00 Visit Coding STANDARD RES Billing Provider: FRITZ SMITH MD Date of Service if different f: Jun 28, 2025 Common Visit Codes: [id number] INP/OBS CARE(HIGH) ISIAH SCHMIDT Jun 28, 2025 14:30 FRITZ SMITH MD Jun 28, 2025 23:33
[2025-06-29] VITALS (7 sets, daily range): BP systolic 136–164; BP diastolic 73–80; PULSE 60–77; RESP 16–18; TEMP 97.4–98.6; O2SAT 96–97
[2025-06-29 05:43] LABS: Chloride 104 mmol/L (98-107); Sodium 140 mmol/L (136-145)
[2025-06-29 05:44] LABS: Anion Gap 7 (5-15); Calcium 8.9 mg/dL (8.7-10.4); Carbon Dioxide 29 mmol/L (20-31)
[2025-06-29 05:49] LABS: BUN/Creatinine Ratio 25.4 (10.0-20.0); Blood Urea Nitrogen 18 mg/dL (9-23)
[2025-06-29 05:54] LABS: Potassium 3.4 mmol/L (3.5-5.1)
[2025-06-29 06:07] LABS: Glucose 93 mg/dL (74-106)
[2025-06-29] MEDS: POTASSIUM CHL 20 Meq TABLET PO ONE (08:30)
[2025-06-29] MEDS ORDERED: NIFE1TAB30 PO (11:57)
--- NOTE | 2025-06-29 15:54 | DVHDSRES ---
Discharge Summary Date of Admission Resident Creating Document: MAYCO BOURGEOIS RESIDENT Jun 25, 2025 at 16:31 Date of Discharge: Jun 29, 2025 Admitting Diagnosis # presyncope polypharmacy/cardiac cause # Hypertension # bilateral pedal pitting edema ? Amlodipine use/congestive heart failure/other causes # BPH # diabetes mellitus two Wounds: none Labs/Diagnostic Data: Laboratory Results Test 06/29/25 05:07 06/28/25 05:22 06/26/25 07:25 06/26/25 06:07 Sodium Level 140 mmol/L (136-145) Potassium Level 3.4 mmol/L (3.5-5.1) Chloride Level 104 mmol/L (98-107) Carbon Dioxide Level 29 mmol/L (20-31) Anion Gap 7 (5-15) Blood Urea Nitrogen 18 mg/dL (9-23) Creatinine 0.71 mg/dL (0.700-1.30) Glomerular Filtration Rate Calc 98 mL/min (>90) BUN/Creatinine Ratio 25.4 (10.0-20.0) Serum Glucose 93 mg/dL (74-106) Calcium Level 8.9 mg/dL (8.7-10.4) Magnesium Level 2.4 mg/dL (1.6-2.6) Urine Color Light-yellow (Yellow) Urine Clarity Clear (Clear) Urine pH 7.0 (5.0-9.0) Urine Specific [place] 1.007 (1.001-1.035) Urine Protein Negative (Negative) Urine Ketones Negative (Negative) Urine Blood Negative /uL (Negative) Urine Nitrite Negative (Negative) Urine Bilirubin Negative (Negative) Urine Urobilinogen Normal mg/dL (Negative) Urine Leukocyte Esterase Negative /uL (Negative) Urine RBC 1 /hpf (0 - 3) Urine Microscopic WBC 1 /HPF (0-3) Urine Squamous Epithelial Cells Few /hpf (<5) Urine Bacteria None seen /hpf (None Seen) Urine Glucose Normal mg/dL (Normal) Urine Opiates Screen Neg (NEGATIVE) Urine Fentanyl Screen Neg (NEGATIVE) Urine Barbiturates Screen Neg (NEGATIVE) Urine Phencyclidine Screen Neg (NEGATIVE) Urine Amphetamines Screen Neg (NEGATIVE) Urine Benzodiazepines Screen Neg (NEGATIVE) Urine Cocaine Screen Neg (NEGATIVE) Urine Cannabinoids Screen Neg (NEGATIVE) White Blood Count 4.8 10^3/uL (4.4-10.8) Red Blood Count 4.52 10^6/uL (4.5-5.90) Hemoglobin 12.9 g/dL (13.5-17.5) Hematocrit 38.3 % (41.0-53.0) Mean Corpuscular Volume 84.8 fL (80.0-100.0) Mean Corpuscular Hemoglobin 28.5 pg (28.0-32.0) Mean Corpuscular Hemoglobin Concent 33.6 g/dL (32.0-36.0) Red Cell Distribution Width 16.1 % (11.8-14.3) Platelet Count 244 10^3/uL (140-450) Mean Platelet Volume 8.1 fL (6.9-10.8) Neutrophils (%) (Auto) 54.2 % (37.0-80.0) Lymphocytes (%) (Auto) 30.8 % (10.0-50.0) Monocytes (%) (Auto) 7.5 % (0.0-12.0) Eosinophils (%) (Auto) 6.0 % (0.0-7.0) Basophils (%) (Auto) 1.5 % (0.0-2.0) Neutrophils # (Auto) 2.6 10 ^3/uL (1.6-8.6) Lymphocytes # (Auto) 1.5 10 ^3/uL (0.4-5.4) Monocytes # (Auto) 0.4 10 ^3/uL (0-1.3) Eosinophils # (Auto) 0.3 10 ^3/uL (0-0.8) Basophils # (Auto) 0.1 10 ^3/uL (0-0.2) Nucleated Red Blood Cells 0.1 % Hemoglobin A1c 5.9 % A1C (<5.7) Total Bilirubin 0.5 mg/dL (0.2-1.0) Aspartate Amino Transferase (AST) 18 U/L (13-40) Alanine Aminotransferase (ALT) 21 U/L (7-40) Alkaline Phosphatase 92 U/L (46-116) Total Protein 7.0 g/dL (5.7-8.2) Albumin 4.1 g/dL (3.2-4.8) Test 06/26/25 05:58 06/25/25 14:03 06/25/25 13:07 POC Glucose 101 mg/dl (70-106) Direct Bilirubin < 0.1 mg/dL (<0.3) Troponin I High Sensitivity 4 ng/L (</=54) Thyroid Stimulating Hormone (TSH) 1.14 uIU/mL (0.55-4.78) B-Type Natriuretic Peptide 46.56 pg/mL (0-100) Vitamin B12 Level 795 pg/mL (211-911) Folic Acid 11.46 ng/mL (>5.38) Other Laboratory Tests 06/29/25 05:07 06/26/25 06:07 Brief Hx & Hospital Course: Patient is a 70-year-old male with a medical history of hypertensive heart disease, BPH presented to the hospital with a chief complaint of dizziness and presyncope. Patient reported recurrent episodes of dizziness when he stands up after bending over, shortness of breath with orthopnea, bilateral lower extremity swelling with the last about week. Patient was seen to have elevated JVP, bilateral lower extremity swelling, EKG showed sinus rhythm with a LVH criteria. Echocardiogram was ordered which showed dilated RV and RA. Patient was started on diuresis which improved his shortness of breath and bilateral lower extremity swelling improved. Patient continued to have episodes of uncontrolled hypertension for which he was started on intensive the pressure control regimen. Patient's reported he snores very loudly and has a episodes where he has difficulty breathing at night. With a clinical picture of right side dilated cardiomyopathy patient was advised to follow up with the PCP and in the discharge clinic and will need referral to a sleep specialist for a sleep study. 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 Hypertensive crisis Hypertensive heart disease with likely heart failure Probable pulmonary hypertension likely d/t possible Sleep apnoea Presyncope likely due to CHF H/o BPH Type 2 diabetes mellitus Discharge Disposition: Home Discharge Instruct/Medications Diet: Cardiac 2g Na,low cholest Activity: No Restrictions, As Tolerated Follow Up/Referral: F/up in the discharge clinic in one week Medications: as per EMR Scheduled Amlodipine Besylate (Norvasc Tablet), 2 TAB PO DAILY, (Reported) Aspirin (Asa), 81 MG PO QAM, (Reported) Atorvastatin Calcium (Atorvastatin Calcium), 1 TAB PO DAILY, (Reported) Atorvastatin Calcium (Atorvastatin Calcium), 20 MG PO HS Carvedilol (Carvedilol), 6.25 MG PO BID Doxazosin Mesylate (Doxazosin Mesylate), 1 TAB PO DAILY, (Reported) Ferrous Sulfate (Iron), 1 TAB PO DAILY, (Reported) Finasteride (Finasteride), 5 MG PO HS Furosemide (Furosemide), 40 MG PO DAILY Hydrochlorothiazide W/Triamter (Hctz/Triamterene), 12.5 MG PO QAM, (Reported) Nifedipine (Nifedipine Er), 60 MG PO DAILY Spironolactone (Aldactone), 25 MG PO DAILY Tamsulosin Hcl (Tamsulosin Hcl), 1 CAP PO DAILY Terazosin Hcl (Terazosin Hcl), 10 MG PO HS, (Reported) Valsartan (Valsartan), 160 MG PO DAILY Valsartan-Hydrochlorothiazide (Diovan Hct), 2 TAB PO DAILY, (Reported) Discharge Statement: "Patient was advised to return to the ER or call 911 if any headaches, dizziness, shortness of breath, chest pain, abdominal pain, bleeding, fevers, or worsening of medical condition. Patient was counseled about treatment plan, medications, possible side effects, patientverbalized understanding. All questions were answered to the best of my ability. This discharge took greater then 30 minutes in planning, reviewing documentation, counseling the patient, and discussing with other team members." ASSESSMENT ASSESSMENT Assessment Acute on chronic right sided dilated cardiomypathy Hypertensive crisis Hypertensive heart disease with likely heart failure Probable pulmonary hypertension likely d/t possible Sleep apnoea Presyncope likely due to CHF H/o BPH Type 2 diabetes mellitus Visit Coding STANDARD RES Billing Provider: FRITZ HEBERT MD Date of Service if different f: Jun 29, 2025 Common Visit Codes: [id number] DISCH DAY >30min MAYCO BOURGEOIS RESIDENT Jun 29, 2025 15:54
== END 2025-06-29 18:40 | disposition home or self-care (01) | DRG 199 ==
LOC: ER 12:42 → OVERFLOW 16:31 → TELE-EAST 06-26 17:50 → EAST 06-27 16:15
PROVIDERS: ADMIT Student in an Organized Health Care Education/Training Program; ATTEND Student in an Organized Health Care Education/Training Program
DX: I16.9 Hypertensive crisis, unspecified (principal); I27.20 Pulmonary hypertension, unspecified; I50.32 Chronic diastolic (congestive) heart failure; I11.0 Hypertensive heart disease with heart failure; E11.9 Type 2 diabetes mellitus without complications; I42.0 Dilated cardiomyopathy; N40.0 Benign prostatic hyperplasia without lower urinary tract symptoms; G47.30 Sleep apnea, unspecified; Z87.891 Personal history of nicotine dependence
CPT/HCPCS: 36415; 70450; 71045; 80048; 80053; 80076; 80307; 81001; 82607; 82746; 82962; 83036; 83735; 83880; 84443; 84484; 85025; 93005; 93306; G0378